=== PATIENT | male | born 1975 | race African-American/Black ===

== ENCOUNTER 2016-07-30 09:11 | Outpatient (CLI) | payer OTHER ==
[2016-07-30 09:55] LABS: Bilirubin Negative (Negative); Blood, Urine Moderate (Negative); Clarity Clear (Clear); Glucose, Urine (Dipstick) Negative (Negative); Leukocyte Negative (Negative); Nitrite Negative (Negative); Protein, Urine (Dipstick) Negative (Neg-Trace); Specific Gravity, Urine 1.015 (1.005-1.030); Urobilinogen 0.2 mg/dL (0.2-1.0)
[2016-07-30 09:56] LABS: #Basophils 0.1 thou/uL (0.0-0.2); #Eosinphils 0.2 thou/uL (0.0-0.7); #Lymphocytes 1.9 thou/uL (1.20-3.40); #Monocytes 1.3 thou/uL (0.11-0.59); #Neutrophils 13.4 thou/uL (1.40-6.50); %Basophils 0.8 % (0.0-1.0); %Eosinophils 1.2 % (0.0-10.0); %Lymphocytes 11.1 % (21.0-51.0); %Monocytes 7.9 % (0.0-10.0); %Neutrophils 79.1 % (42.0-75.0); Hemoglobin 15.1 g/dL (14.0-18.0); Mean Corpuscular HGB CONC 32.5 g/dL (32.0-36.0); Mean Corpuscular Hemoglobin 28.4 pg (27.0-31.0); Mean Corpuscular Volume 87.5 fl (80.0-94.0); Mean Platelet Volume 7.5 fL (7.4-10.4); Platelet Count 205 thou/uL (130-400); RBC Distribution Width 11.8 % (11.5-14.5); Red Blood Cell (RBC) Count 5.32 mill/uL (4.70-6.10)
[2016-07-30 10:14] LABS: ALT (SGPT) 65 U/L (0-55); AST (SGOT) 52 U/L (5-34); Albumin 4.5 g/dL (3.5-5.0); Alkaline Phosphatase 62 U/L (40-150); Anion Gap 17 mmol/L (10-20); BUN (Urea Nitrogen) 16 mg/dL (8.9-20.6); Bacteria/HPF None Seen HPF (None Seen); Bilirubin, Total 1.1 mg/dL (0.2-1.2); Calc. Creatinine Clearance 0 mL/min (70-130); Calcium 9.4 mg/dL (7.8-10.44); Carbon Dioxide 26 mmol/L (22-29); Cardiac Risk 3.6 (Less than 4.5); Chloride 99 mmol/L (98-107); Cholesterol 167 mg/dL (< 200 Desired); Estimated GFR-MDRD 46; Globulin 2.6 g/dL (2.4-3.5); Glucose 99 mg/dL (70-105); HDL Cholesterol 47 mg/dL (>60 Neg Risk); LDL Cholesterol, Calculated 93 mg/dL; Other Microscopic Description C&S SET UP; Potassium 4.3 mmol/L (3.5-5.1); Protein, Total 7.1 g/dL (6.0-8.3); RBC/HPF 0-3 HPF (0-3); Sodium 138 mmol/L (136-145); Squamous Epithelial 0-3 HPF (0-3); Triglycerides 134 mg/dL (Less than 150); WBC/HPF 0-3 HPF (0-3)
== END 2016-07-30 09:12 | disposition home or self-care (01) ==
LOC: MADLABBHPM 09:11
PROVIDERS: ATTEND Family Medicine
DX: R10.9 Unspecified abdominal pain (principal)
CPT/HCPCS: 36415; 80053; 80061; 81001; 84443; 85025; 87086

== ENCOUNTER 2016-10-10 10:03 | Outpatient (CLI) | payer OTHER ==
[2016-10-10 11:18] LABS: ALT (SGPT) 27 U/L (0-55); AST (SGOT) 29 U/L (5-34); Albumin 4.2 g/dL (3.5-5.0); Alkaline Phosphatase 56 U/L (40-150); Bilirubin, Direct 0.3 mg/dL (0.1-0.3); Bilirubin, Total 0.7 mg/dL (0.2-1.2); Protein, Total 6.6 g/dL (6.0-8.3); Uric Acid 8.9 mg/dL (3.5-7.2)
== END 2016-10-10 10:04 ==
LOC: MADLABBHPM 10:03
PROVIDERS: ATTEND Family Medicine
DX: M10.9 Gout, unspecified (principal)
CPT/HCPCS: 36415; 80076; 84550; 85652

== ENCOUNTER 2021-06-30 11:01 | Emergency (ER) | payer BC ==
[2021-07-01 17:02] LABS: SARS-CoV-2 PCR by NAA DETECTED (NotDetected)
== END 2021-06-30 11:45 | disposition home or self-care (01) ==
LOC: MADERS 11:01
DX: U07.1 COVID-19 (principal); J06.9 Acute upper respiratory infection, unspecified; I10 Essential (primary) hypertension; M10.9 Gout, unspecified; F17.220 Nicotine dependence, chewing tobacco, uncomplicated
CPT/HCPCS: 99283; U0003; U0005

== ENCOUNTER 2025-05-11 08:28 | Outpatient (CLI) | payer BC ==
[2025-05-11 08:59] LABS: #Basophils 0.1 thou/uL (0.0-0.2); #Eosinophils 0.3 thou/uL (0.0-0.7); #Lymphocytes 2.3 thou/uL (1.20-3.40); #Monocytes 0.8 thou/uL (0.11-0.59); #Neutrophils 4.9 thou/uL (1.40-6.50); %Basophils 1.6 % (0.0-1.0); %Eosinophils 3.6 % (0.0-10.0); %Lymphocytes 27.8 % (21.0-51.0); %Monocytes 9.0 % (0.0-10.0); %Neutrophils 58.0 % (42.0-75.0); Hematocrit 49.1 % (42.0-52.0); Hemoglobin 15.1 g/dL (14.0-18.0); Mean Corpuscular Hemoglobin 27.6 pg (27.0-31.0); Mean Corpuscular Volume 89.8 fl (78.0-98.0); Platelet Count 228 10x3/uL (130-400); Red Blood Cell (RBC) Count 5.47 mill/uL (4.70-6.10); White Blood Cell (WBC) Count 8.4 10x3/uL (4.8-10.8)
[2025-05-11 09:44] LABS: Anion Gap 15 mmol/L (10-20); BUN (Urea Nitrogen) 15 mg/dL (8.9-20.6); Calc. Creatinine Clearance 0 mL/min (70-130); Calcium 9.2 mg/dL (7.8-10.44); Carbon Dioxide 24 mmol/L (22-29); Chloride 105 mmol/L (98-107); Glucose 101 mg/dL (70-105); Potassium 4.4 mmol/L (3.5-5.1); Sodium 140 mmol/L (136-145); Uric Acid 5.7 mg/dL (3.7-7.7)
== END 2025-05-11 08:29 | disposition home or self-care (01) ==
LOC: MADLAB 08:28
PROVIDERS: ATTEND Student in an Organized Health Care Education/Training Program
DX: M10.9 Gout, unspecified (principal); Z79.899 Other long term (current) drug therapy
CPT/HCPCS: 36415; 80048; 84550; 85025

== ENCOUNTER 2025-06-08 13:14 | Outpatient (CLI) | payer BC ==
[2025-06-08 13:37] LABS: #Basophils 0.2 thou/uL (0.0-0.2); #Eosinophils 0.2 thou/uL (0.0-0.7); #Lymphocytes 2.3 thou/uL (1.20-3.40); #Monocytes 1.1 thou/uL (0.11-0.59); #Neutrophils 5.7 thou/uL (1.40-6.50); %Basophils 1.6 % (0.0-1.0); %Eosinophils 2.6 % (0.0-10.0); %Lymphocytes 24.6 % (21.0-51.0); %Monocytes 11.5 % (0.0-10.0); %Neutrophils 59.8 % (42.0-75.0); Hematocrit 47.5 % (42.0-52.0); Hemoglobin 14.4 g/dL (14.0-18.0); Mean Corpuscular Hemoglobin 27.5 pg (27.0-31.0); Mean Corpuscular Volume 90.8 fl (78.0-98.0); Platelet Count 219 10x3/uL (130-400); Red Blood Cell (RBC) Count 5.23 mill/uL (4.70-6.10); White Blood Cell (WBC) Count 9.5 10x3/uL (4.8-10.8)
[2025-06-08 13:56] LABS: Anion Gap 15 mmol/L (10-20); BUN (Urea Nitrogen) 17 mg/dL (8.9-20.6); Calc. Creatinine Clearance 0 mL/min (70-130); Calcium 9.3 mg/dL (7.8-10.44); Carbon Dioxide 25 mmol/L (22-29); Chloride 106 mmol/L (98-107); Glucose 88 mg/dL (70-105); Potassium 4.0 mmol/L (3.5-5.1); Sodium 142 mmol/L (136-145); Uric Acid 5.9 mg/dL (3.7-7.7)
== END 2025-06-08 13:15 | disposition home or self-care (01) ==
LOC: MADLAB 13:14
PROVIDERS: ATTEND Student in an Organized Health Care Education/Training Program
DX: M10.9 Gout, unspecified (principal); Z79.899 Other long term (current) drug therapy
CPT/HCPCS: 36415; 80048; 84550; 85025